=== PATIENT | female | born 1985 | race Caucasian/White ===

== ENCOUNTER → 2018-01-08 14:26 | Outpatient (CLI) | payer MEDICAID, SELFPAY ==
[2018-01-08 16:53] LABS: Group B Strep DNA By PCR Negative (Negative); Internal Control PASS; Probe Check PASS; Specimen Processing Control PASS
== END ==
PROVIDERS: Visit Provider Obstetrics & Gynecology
DX: Z36.85 Encounter for antenatal screening for Streptococcus B (principal)
CPT/HCPCS: 87081; 87653

== ENCOUNTER 2018-01-25 13:45 | Inpatient (IN) | payer MEDICAID, SELFPAY ==
[2018-01-25 14:15] VITALS: BMI 27.8
[2018-01-25] MEDS: Lactated Ringers 1,000 ML 50 ML IV (14:20)
[2018-01-25 14:40] LABS: Hematocrit 38.2 % (37-47); Mean Corpuscular Hgb 33.6 pg (27.0-32.0); Mean Corpuscular Volume 98.7 fL (81-99); Mean Platelet Vol. 9.9 fl (6.2-12.0); Platelet Count 202 K/mm3 (150-450); RBC Distribution Width CV 12.6 % (11.6-14.6); RBC Distribution Width SD 45.6 fl (35.1-43.9); Red Blood Count 3.87 M/mm3 (4.2-5.4); White Blood Count 12.2 K/mm3 (4.4-11.0)
[2018-01-25 14:42] LABS: Scan Indicated on CBC? Y/N NO
[2018-01-25 14:51] LABS: ROM Internal Control Test YES-OK TO RESULT pt. (Internal QC)
[2018-01-25 14:52] LABS: ROM Patient Test POSITIVE (Negative)
[2018-01-25] MEDS: Oxytocin 30 units/NS 500 ml 30 UNITS/500 ML IV.SOLN 334 UNITS IV (15:20)
[2018-01-25] MEDS: Oxytocin 30 units/NS 500 ml 30 UNITS/500 ML IV.SOLN 167 UNITS IV (15:50)
--- NOTE | 2018-01-25 17:09 | OP.PCM_ITS ---
Vaginal Delivery Maternal Presentation: Active Labor 40 weeks ega admitted with SROM and regular contractions Amniotic Membrane Rupture Type: Spontaneous at home Rupture of Membrane time: 1230 Amniotic Fluid Description: Clear Final COREY: 01/25/18 Final COREY Source: [place] <20 weeks Gestational age: 40 Weeks and 0 Days [place] doctor who attended delivery (if requested by OB): Janel Khalil Date of Procedure: 01/25/18 Pre-Operative Diagnosis: Labor Post-Operative Diagnosis: Same Surgery/ Procedure Performed: Spontaneous Vaginal Delivery Type of Anesthesia: None Description of Procedure: Presented at 6-7 cm dilated with SROM at home described as clear. I examined the patient when she became fully dilated and noted thin meconium. The heart beat pattern was mostly reassuring until she started pushing. FHR decels to 80-90s noted and were prolonged. Attempt to assist delivery with Kiwi device with one pull resulting in pop-off. No further attempts were made with the Kiwi. She pushed over the next 10 minutes to deliver the head. There was a loose nuchal cord x 2 which was reduced prior to delivering the body. Delayed cord clamping was employed. The nose and mouth were suctioned with a bulb suction. The baby was dried and stimulated. There was an active cry shortly after delivery. The baby was placed on mom's abdomen. Apgars were 9/9. The placenta was delivered spontaneously intact with a centrally located 3VC. The uterus contracted well. Inspection revealed an intact upper vagina, cervix and perineum. A small periurethral first degree tear was repaired with 3 -0 rapide suture in a single figure of eight stitch. Presentation: Vertex Placental Delivery Description: Spontaneous Placenta Disposition: [facility] Percentage of Placenta Abruption: 0 Cord Vessel Description: 3 Vessels Nuchal Cord Compression: Without compression Cord Entanglement: Around neck x 2, loose Estimated Blood Loss: 200cc Infant A gender: Male (1 minute): 9 (5 minute): 9 Episiotomy Description: None Laceration: Periurethral Extnsion/lac, 1st degree Medications given after delivery: IV Pitocin Complications: None
--- NOTE | 2018-01-25 17:13 | DCINST_ITS ---
Discharge Diet: No Restrictions Discharge Activity: Return to Normal Activity, May Drive, May Shower Return to work on:: 03/27/18 May shower in (days): 0 May resume sexual activity in: 4-6 weeks Call your doctor if your incision/area has: Sudden Increased Bleeding, Increased Pain/ Swelling, Increased Redness, Foul Smelling Discharge Call your doctor if you observe: Fever of 101 or Higher, Inability to urinate, Inability to have a bowel movement, Using more than one pad per hour, Shortness of breath, Chest pain, Calf discomfort, Uncontrolled pain Cleanse incision/area with: Soap & Water Additional Instructions: If you experience any of the following, contact your healthcare provider. * Bleeding that soaks a pad every hour for 2 hours * Fever 100.4 or higher * Unrelieved incision or abdominal pain * Swelling, redness, discharge or bleeding from your incision or episiotomy site * Your incision begins to separate * Problems urinating (including inability to urinate or burning while urinating) . * Visual changes * Severe headache * Flu-like symptoms * Pain or redness in one of both of your breasts * Pain, warmth, tenderness or swelling in your legs, especially the calf area * Frequent nausea and vomiting * Symptoms of depression or anxiety If you experience any of the following, call 911 or go to the nearest Emergency Room. * Chest pain * Problems breathing * Seizure activity * Partial or complete paralysis of a body part, slurred speech, weakness or drooping of the face, or a sudden inability to walk or hold your balance Allergies/Adverse Reactions: Allergies NSAIDS (Non-Steroidal Anti-Inflamma Allergy (Unverified 01/25/18 14:39) Other Medications to take at Discharge Vits [Prenatabs FA ] 1 tab PO DAILY 01/25/18 Please Follow Up With: Alayna Marcelo MD When: 6 weeks Primary Care Physician: Care Physician,No Primary [Primary Care Provider] - Proposed Discharge Date: 01/27/18
[2018-01-25 20:00] VITALS: BP 108/57; PULSE 83; RESP 14; TEMP 37.1; O2SAT 96
[2018-01-25 23:30] VITALS: BP 99/53; PULSE 75; RESP 14; TEMP 37.1
[2018-01-26 04:00] VITALS: BP 93/57; PULSE 65; RESP 14; TEMP 37.2
[2018-01-26 04:49] LABS: Hematocrit 36.4 % (37-47); Hemoglobin 12.1 g/dl (12.0-15.0); Mean Corp Hgb Conc 33.2 g/gl (32-36); Mean Corpuscular Volume 99.2 fL (81-99); Mean Platelet Vol. 9.8 fl (6.2-12.0); Platelet Count 194 K/mm3 (150-450); RBC Distribution Width CV 12.7 % (11.6-14.6); RBC Distribution Width SD 46.3 fl (35.1-43.9); Red Blood Count 3.67 M/mm3 (4.2-5.4)
[2018-01-26 04:50] LABS: Scan Indicated on CBC? Y/N NO
--- NOTE | 2018-01-26 08:17 | PCM.PN.OB ---
Subjective: No specific complaints today. Breast feeding. Bleeding light. Objective: Afeb VSS Hgb stable - Physical Exam General: Alert, Oriented x3, Cooperative, No apparent distress Lungs: Clear to auscultation, Normal air movement Cardiovascular: Regular rate, Regular Rhythm Abdomen: Soft, Non Tender, Non-Distended, - - Fundus firm nontender Extremities: No edema Vital Signs Temp Pulse Resp BP Pulse Ox 98.9 F 65 14 93/57 L 96 01/26/18 04:00 01/26/18 04:00 01/26/18 04:00 01/26/18 04:00 01/25/18 20:00 Oxygen Delivery Method Room Air Weight: 142 lb 10.225 oz Body Mass Index (BMI) 27.8 Laboratory Tests Past 24 Hrs 01/25/18 01/25/18 01/25/18 14:05 14:20 14:20 WBC 12.2 H RBC 3.87 L Hgb 13.0 Hct 38.2 MCV 98.7 MCH 33.6 H MCHC 34.0 RDW 12.6 RDW Differential 45.6 H Plt Count 202 MPV 9.9 Vag Amniotic Fld Detect POSITIVE H Blood Type A POSITIVE Antibody Screen NEGATIVE 01/26/18 04:30 WBC 14.0 H RBC 3.67 L Hgb 12.1 Hct 36.4 L MCV 99.2 H MCH 33.0 H MCHC 33.2 RDW 12.7 RDW Differential 46.3 H Plt Count 194 MPV 9.8 Vag Amniotic Fld Detect Blood Type Antibody Screen Medical Necessity - Tobacco Use Smoking Status: Never smoker Assessment/Plan Doing well on PP day#1. Would like early discharge and medically is cleared as long as baby discharged. Home going instructions and warnings given.
--- NOTE | 2018-01-26 08:19 | PCM.DC.SUM ---
Discharge Date and Diagnosis Date of Admission: 01/25/18 Date of Discharge: 01/26/18 - Primary Discharge Diagnosis S/P Hospital Course and Treatment Consultations 01/25/18 14:15 Consult: Anesthesia Routine Comment: Reason For Exam: labor Operations: None Procedures: - - Summary of Care Provided: The patient is a 32 year old F [admitted with SROM and active labor. Progressed to FD then pushed for a short time to deliver a live male without complication. Discharged home on PP day#1.] Discharge Diet: No Restrictions Discharge Activity: Return to Normal Activity, May Drive, May Shower Return to work on:: 03/27/18 May shower in (days): 0 May resume sexual activity in: 4-6 weeks Call your doctor if your incision/area has: Sudden Increased Bleeding, Increased Pain/ Swelling, Increased Redness, Foul Smelling Discharge Call your doctor if you observe: Fever of 101 or Higher, Inability to urinate, Inability to have a bowel movement, Using more than one pad per hour, Shortness of breath, Chest pain, Calf discomfort, Uncontrolled pain Cleanse incision/area with: Soap & Water Home Medications: Medications to take at Discharge Vits [Prenatabs FA ] 1 tab PO DAILY 01/25/18 Primary Care Physician: Care Physician,No Primary [Primary Care Provider] - Please Follow Up With: Alayna Marcelo MD When: 6 weeks Disposition: Home Minutes spent on discharge:: 15 Patient Condition:: Good Medical Necessity - Tobacco Use Smoking Status: Never smoker Meaningful Use Info Meaningful Use Diagnoses (Choose all that apply): None applicable
[2018-01-26 08:30] VITALS: BP 103/54; PULSE 84; RESP 16; TEMP 37.3
--- NOTE | 2018-01-26 10:13 | CASEMGMT ---
See Social Work Assessment in baby's chart HAILEY spoke with RN who had no concerns with patient or father of baby. SW met with patient. It was just patient and baby in the room. Patient was sitting up on bed and baby was lying on in front of her on the bed. Father of baby had just left to go home and get some items. Confirmed address and phone number. Patient lives at home with her and their 3 year old boy. Family is very supportive. They have all necessary supplies. 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 They are not on WIC as she says they are picky about their food. They are on Medicaid. Discussed Post Depression. She said she had some issues with PPD with her prior baby, but it was not that bad. She did not take any medications and her family was very supportive. She does not like to take medication. She likes to treat things naturally. She did not have any pain medicine with her delivery. She said she feels fine and is not worried about PPD. She is excited to get home and see how her 3 year old son does with the baby. She denied any other needs or concerns. HAILEY did leave a packet of information with mother of baby. Plan: d/c home with baby. Marlene STEHPENSON MSW
[2018-01-26 11:54] VITALS: BP 105/57; PULSE 75; RESP 16; TEMP 37.1
[2018-01-26] MEDS: Prenatal Vits Tablet 1 TABLET PO (12:08)
[2018-01-26 16:43] VITALS: BP 102/64; PULSE 79; RESP 16; TEMP 36.8
== END 2018-01-26 17:45 | disposition home or self-care (01) | DRG 373 ==
PROVIDERS: Admitting Provider Obstetrics & Gynecology; Visit Provider Obstetrics & Gynecology
DX: O77.0 Labor and delivery complicated by meconium in amniotic fluid (principal); O69.81X0 Labor and delivery complicated by cord around neck, without compression, not applicable or unspecified; O76 Abnormality in fetal heart rate and rhythm complicating labor and delivery; Z37.0 Single live birth; Z3A.40 40 weeks gestation of pregnancy; O71.82 Other specified trauma to perineum and vulva
CPT/HCPCS: 59050; 84112; 85027; 86850; 86900; 99218; J7120; G0378